=== PATIENT | female | born 1990 | race Caucasian/White ===

== ENCOUNTER 2018-07-14 14:51 | Emergency (ER) | payer MEDICAID ==
[~2018-07-14] VITALS: Ht 157.5 cm; Wt 59.9 kg
[2018-07-14] MEDS ORDERED: KETOROLAC TROMETHAMINE 60 MG INJ IM ONE ×2 (15:15→15:18)
--- NOTE | 2018-07-14 16:11 | NUR ---
Patient discharged to home in stable conditon. Written and verbal after care instructions given. Patient verbalizes understanding of instructions.PT WALKS IN STEADY GAIT. PT WITH FRIENDS
== END 2018-07-14 16:13 | disposition home or self-care (01) ==
LOC: ER 14:51
DX: M43.6 Torticollis (principal)
CPT/HCPCS: 72040; 96372; 99283; J1885; A4663

== ENCOUNTER 2020-01-23 14:12 | Emergency (ER) | payer MEDICAID, OTHER ==
[~2020-01-23] VITALS: Ht 160 cm; Wt 59.9 kg
[2020-01-23 14:40] LABS: *BILIRUBIN,URIN NEGATIVE (NEGATIVE); *BLOOD, URINE NEGATIVE (NEGATIVE); *CLARITY,URINE CLOUDY (CLEAR); *COLOR,URINE YELLOW (YELLOW); *KETONES,URINE 1+ (NEGATIVE); *UROBILINOGEN,URINE 0.2 E.U./dl (NORMAL); LEUKOCYTE ESTERASE ,URINE NEGATIVE (NEGATIVE); NITRITE, URINE NEGATIVE (NEGATIVE); PH,URINE 7.5 (5.0-8.0); UGLUCOSE NEGATIVE (NEGATIVE)
[2020-01-23 14:41] LABS: *URINE HCG, QUAL NEG (NEGATIVE)
[2020-01-23] MEDS ORDERED: DICYCLOMINE HCL LIQ 10 MG/5 ML UDC PO ONE (14:45)
[2020-01-23] MEDS ORDERED: MAG HYDROX/AL HYDROX/SIMETH 30 ML LIQUID UDC PO ONE (14:45)
[2020-01-23] MEDS ORDERED: PANTOPRAZOLE SODIUM 40 MG TABLET.DR PO ONE ×2 (14:45→14:46)
[2020-01-23] MEDS ORDERED: MAG HYDROX/AL HYDROX/SIMETH 30 ML LIQUID UDC ONE (14:46)
[2020-01-23] MEDS ORDERED: DICYCLOMINE HCL LIQ 10 MG/5 ML UDC ONE (14:46)
--- NOTE | 2020-01-23 15:05 | NUR ---
Patient discharged to home in stable condition. Written and verbal after care instructions given. Patient verbalizes understanding of instructions. Stressed follow up or return to ER for worsening s/s. Patient ambulated with steady gait. NAD noted
[2020-01-23 15:07] VITALS: BP 110/53
[2020-01-23 16:03] LABS: BACTERIA,URINE MANY /HPF (NONE SEEN); SQUAMOUS EPITHELIAL CELL,UR MANY /HPF (NONE SEEN)
== END 2020-01-23 15:05 | disposition home or self-care (01) ==
LOC: ER 14:16
DX: K21.9 Gastro-esophageal reflux disease without esophagitis (principal)
CPT/HCPCS: 84703; 87086; A4663